=== PATIENT | female | born 1995 | race Two or more races ===

== ENCOUNTER 2022-05-20 22:20 | Emergency (ER) | payer MEDICAID ==
[~2022-05-20] VITALS: Ht 157.5 cm; Wt 56.7 kg
--- NOTE | 2022-05-21 00:22 | NUR ---
Dr. Santacruz in room examining patient.
--- NOTE | 2022-05-21 00:30 | NUR ---
MD AT BEDSIDE DRAINING THE SMALL SEROMA ON PT'S ABD. DRESSING APPLIED. PT NELLIE WELL.
--- NOTE | 2022-05-21 01:07 | NUR ---
Patient discharged to home in stable condition. Written and verbal after care instructions given. Patient verbalizes understanding of instructions. Stressed follow up or return to ER for worsening s/s. Patient walked with steady gait.
[2022-05-21 01:23] VITALS: BP 120/68
== END 2022-05-21 01:15 | disposition home or self-care (01) ==
LOC: ER 22:20
DX: L76.34 Postprocedural seroma of skin and subcutaneous tissue following other procedure (principal); Z98.890 Other specified postprocedural states
CPT/HCPCS: A4663

== ENCOUNTER 2022-05-31 13:19 | Emergency (ER) | payer MEDICAID ==
[~2022-05-31] VITALS: Ht 157.5 cm; Wt 56.7 kg
[2022-05-31 14:32] LABS: *BILIRUBIN,URIN NEGATIVE (NEGATIVE); *BLOOD, URINE 2+ (NEGATIVE); *CLARITY,URINE CLEAR (CLEAR); *COLOR,URINE YELLOW (YELLOW); *KETONES,URINE NEGATIVE (NEGATIVE); *UROBILINOGEN,URINE 0.2 E.U./dl (NORMAL); LEUKOCYTE ESTERASE ,URINE NEGATIVE (NEGATIVE); NITRITE, URINE NEGATIVE (NEGATIVE); UGLUCOSE NEGATIVE (NEGATIVE)
[2022-05-31 14:33] LABS: *URINE HCG, QUAL NEG (NEGATIVE)
[2022-05-31 15:54] VITALS: BP 129/73
[2022-05-31 16:28] LABS: BACTERIA,URINE MODERATE /HPF (NONE SEEN); SQUAMOUS EPITHELIAL CELL,UR FEW /HPF (NONE SEEN); WBC,URINE NONE SEEN /HPF (0-3)
[2022-05-31 16:29] LABS: URINE AMORPHOUS URATE MODERATE /HPF
== END 2022-05-31 15:32 | disposition home or self-care (01) ==
LOC: ER 13:21
DX: L76.34 Postprocedural seroma of skin and subcutaneous tissue following other procedure (principal)
CPT/HCPCS: 84703; A4663

== ENCOUNTER 2022-06-13 12:58 | Emergency (ER) | payer MEDICAID ==
[~2022-06-13] VITALS: Ht 154.9 cm; Wt 56.7 kg
--- NOTE | 2022-06-13 13:39 | NUR ---
seen and examined by
--- NOTE | 2022-06-13 13:55 | NUR ---
called xray for ultrasound, will call back once available
--- NOTE | 2022-06-13 14:07 | NUR ---
Patient discharged to home in stable condition. Written and verbal after care instructions given. Patient verbalizes understanding of instructions. Stressed follow up or return to ER for worsening s/s.
[2022-06-13 14:09] VITALS: BP 112/80
== END 2022-06-13 14:10 | disposition home or self-care (01) ==
LOC: ER 12:58
DX: L76.34 Postprocedural seroma of skin and subcutaneous tissue following other procedure (principal)
CPT/HCPCS: A4663

== ENCOUNTER 2022-10-04 01:05 | Emergency (ER) | payer MEDICAID ==
[~2022-10-04] VITALS: Ht 154.9 cm; Wt 57.6 kg
[2022-10-04 01:33] LABS: *BILIRUBIN,URIN NEGATIVE (NEGATIVE); *BLOOD, URINE NEGATIVE (NEGATIVE); *CLARITY,URINE CLEAR (CLEAR); *COLOR,URINE YELLOW (YELLOW); *KETONES,URINE NEGATIVE (NEGATIVE); *PROTEIN,URINE NEGATIVE (NEGATIVE); *UROBILINOGEN,URINE 0.2 E.U./dl (NORMAL); LEUKOCYTE ESTERASE ,URINE NEGATIVE (NEGATIVE); NITRITE, URINE NEGATIVE (NEGATIVE); UGLUCOSE NEGATIVE (NEGATIVE)
[2022-10-04 01:34] LABS: *URINE HCG, QUAL NEGATIVE (NEGATIVE)
[2022-10-04] MEDS ORDERED: PHENAZOPYRIDINE HCL 100 MG TABLET PO ONE (02:00)
[2022-10-04] MEDS ORDERED: FLUCONAZOLE 100 MG TABLET PO ONE (02:00)
[2022-10-04] MEDS ORDERED: CEphaleXIN 500 MG CAPSULE PO ONE (02:00)
[2022-10-04] MEDS ORDERED: PHENAZOPYRIDINE HCL 100 MG TABLET ONE (02:03)
[2022-10-04] MEDS ORDERED: FLUCONAZOLE 100 MG TABLET ONE (02:03)
[2022-10-04] MEDS ORDERED: CEphaleXIN 500 MG CAPSULE ONE (02:03)
[2022-10-04 03:40] LABS: BACTERIA,URINE FEW /HPF (NONE SEEN); SQUAMOUS EPITHELIAL CELL,UR FEW /HPF (NONE SEEN); WBC,URINE 0-3 /HPF (0-3)
[2022-10-04] MEDS ORDERED: PHEN-705 PO (04:00)
[2022-10-04] MEDS ORDERED: CEPH500C2 PO (04:00)
[2022-10-04 04:07] VITALS: BP 108/57; O2SAT 97
[2022-10-07 13:06] LABS: *CHLAMYDIA NAA Negative (Negative); *GC NAA Negative (Negative)
[2022-10-07 15:06] LABS: *TRIC.VAG. NAA Negative (Negative)
== END 2022-10-04 04:07 | disposition home or self-care (01) ==
LOC: ER 01:08
DX: N39.0 Urinary tract infection, site not specified (principal); Z79.899 Other long term (current) drug therapy
CPT/HCPCS: 84703; 87210; 87491; A4663